=== PATIENT | male | born 1995 | race Caucasian/White ===

== ENCOUNTER 2020-03-26 12:56 | Emergency (ER) | payer OTHER, SELFPAY ==
[~2020-03-26] VITALS: Ht 175.3 cm; Wt 77.1 kg
[2020-03-26 13:35] VITALS: BP 118/58
--- NOTE | 2020-03-26 13:43 | NUR ---
C/O COUGH, FEVER, SORE THROAT, MAYER, BODY ACHES X TODAY. COVID TESTED 1.5 MONTHS AGO: NEGATIVE. PMH: DENIES
--- NOTE | 2020-03-26 14:24 | NUR ---
COVID SWAB COLLECTED.
[2020-03-26 14:26] VITALS: BP 118/58
--- NOTE | 2020-03-26 14:26 | NUR ---
Patient discharged with v/s stable. Written and verbal after care instructions given and explained. Patient alert, oriented and verbalized understanding of instructions. Ambulatory with steady gait. All questions addressed prior to discharge. ID band removed. Patient advised to follow up with PMD. Rx of TYLENOL & PROMETHAZINE given. Patient educated on indication of medication including possible reaction and side effects. Opportunity to ask questions provided and answered.
== END 2020-03-26 14:26 | disposition home or self-care (01) ==
LOC: MED 12:56
DX: R05 Cough (principal); Z20.828 Contact with and (suspected) exposure to other viral communicable diseases; F12.90 Cannabis use, unspecified, uncomplicated
CPT/HCPCS: 99283; U0003